=== PATIENT | male | born 2000 | race American Indian/Alaskan Native ===

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

== ENCOUNTER 2018-04-01 19:04 | Emergency (ER) | payer MEDICAID ==
[~2018-04-01] VITALS: Ht 167.6 cm; Wt 106.7 kg
[2018-04-01 19:15] VITALS: BP 159/101
[2018-04-02] MEDS ORDERED: LIDOCAINE 1% (LOCAL ANESTH.) PF 5ml SDV IJ ONE (02:00)
[2018-04-02] MEDS ORDERED: LIDOCAINE 2% (LOCAL ANESTH.) PF 5ml SDV ONE (02:00)
== END 2018-04-02 02:46 | disposition home or self-care (01) ==
LOC: ER 19:04
DX: S61.214A Laceration without foreign body of right ring finger without damage to nail, initial encounter (principal); W26.0XXA Contact with knife, initial encounter; Y93.89 Activity, other specified; Y92.89 Other specified places as the place of occurrence of the external cause; Y99.8 Other external cause status
CPT/HCPCS: 12001

== ENCOUNTER 2018-04-11 19:14 | Emergency (ER) | payer MEDICAID ==
[~2018-04-11] VITALS: Ht 167.6 cm; Wt 108.9 kg
[2018-04-11 19:30] VITALS: BP 142/90
== END 2018-04-11 21:22 | disposition home or self-care (01) ==
LOC: ER 19:14
DX: S61.210D Laceration without foreign body of right index finger without damage to nail, subsequent encounter (principal); X58.XXXD Exposure to other specified factors, subsequent encounter

== ENCOUNTER 2018-09-09 05:00 | Emergency (ER) | payer MEDICAID ==
[~2018-09-09] VITALS: Ht 175.3 cm; Wt 105.2 kg
[2018-09-09 06:14] VITALS: BP 149/88
== END 2018-09-09 06:40 | disposition home or self-care (01) ==
LOC: ER 05:04
DX: S63.592A Other specified sprain of left wrist, initial encounter (principal); S20.219A Contusion of unspecified front wall of thorax, initial encounter; W11.XXXA Fall on and from ladder, initial encounter; Y93.89 Activity, other specified; Y99.8 Other external cause status; Y92.89 Other specified places as the place of occurrence of the external cause
CPT/HCPCS: 29125; 71250; 73110

== ENCOUNTER 2019-02-21 19:13 | Emergency (ER) | payer MEDICAID ==
[~2019-02-21] VITALS: Ht 172.7 cm; Wt 105.7 kg
[2019-02-21 19:23] VITALS: BP 149/85
== END 2019-02-22 01:45 | disposition left against medical advice (07) ==
LOC: ER 19:17
DX: S39.94XA Unspecified injury of external genitals, initial encounter (principal); W17.2XXA Fall into hole, initial encounter; Y93.89 Activity, other specified; Y99.8 Other external cause status; Y92.89 Other specified places as the place of occurrence of the external cause; Z53.21 Procedure and treatment not carried out due to patient leaving prior to being seen by health care provider
CPT/HCPCS: 76870

== ENCOUNTER 2019-09-19 09:34 | Emergency (ER) | payer MEDICAID ==
[~2019-09-19] VITALS: Ht 175.3 cm; Wt 98.4 kg
[2019-09-19 11:04] VITALS: BP 137/95
== END 2019-09-19 11:14 | disposition home or self-care (01) ==
LOC: ER 09:34
DX: S51.012A Laceration without foreign body of left elbow, initial encounter (principal); W45.8XXA Other foreign body or object entering through skin, initial encounter; Y93.89 Activity, other specified; Y92.89 Other specified places as the place of occurrence of the external cause; Y99.8 Other external cause status
CPT/HCPCS: 73080

== ENCOUNTER 2022-06-29 22:28 | Emergency (ER) | payer MEDICAID ==
[~2022-06-29] VITALS: Ht 175.3 cm; Wt 90.2 kg
[2022-06-30] MEDS ORDERED: HYDROcodone-ACET 5/325MG TAB PO ONE (00:30)
[2022-06-30] MEDS ORDERED: diphenhdrAMINE HCL 25 MG CAP PO ONE (00:30)
[2022-06-30] MEDS ORDERED: METOCLOPRAMIDE HCL 10 MG TAB PO ONE (00:30)
[2022-06-30] MEDS ORDERED: KETOROLAC TROMETH 30 MG/ML 1ML VIAL IM ONE (00:30)
[2022-06-30] MEDS ORDERED: IOHEXOL 350 MG/ML 100ML IJ ONE (00:34)
[2022-06-30 01:07] LABS: Basophils # (auto) 0.1 10 ^3/uL (0-0.2); Basophils % (auto) 1.1 % (0.0-2.0); Eosinophils # (auto) 0.1 10 ^3/uL (0-0.8); Eosinophils % (auto) 1.3 % (0.0-7.0); Hematocrit 45.5 % (41.0-53.0); Hemoglobin 15.6 g/dL (13.5-17.5); Lymphocytes # (auto) 3.8 10 ^3/uL (0.4-5.4); Lymphocytes % (auto) 36.7 % (10.0-50.0); Mean Corpuscular Hemoglobin 29.9 pg (28.0-32.0); Mean Corpuscular Hgb Conc. 34.3 g/dL (32.0-36.0); Mean Corpuscular Volume 87.4 fL (80.0-100.0); Monocytes % (auto) 9.6 % (0.0-12.0); Neutrophils # (auto) 5.3 10 ^3/uL (1.6-8.6); Neutrophils % (auto) 51.3 % (37.0-80.0); Nucleated Red Blood Cells % 0.1 %; Red Blood Cells 5.21 10^6/uL (4.5-5.90); Red Cell Distribution Width 13.7 % (11.8-14.3); White Blood Cell 10.4 10^3/uL (4.4-10.8)
[2022-06-30 01:25] LABS: Albumin 4.4 g/dL (3.4-5.0); BUN/Creatinine Ratio 10.8; Calcium 9.1 mg/dL (8.5-10.1); Potassium 4.2 mmol/L (3.5-5.1)
[2022-06-30 01:28] LABS: Bilirubin, Total 0.4 mg/dL (0.2-1.0); Total Protein 7.6 g/dL (6.4-8.2)
[2022-06-30] MEDS ORDERED: METOCLOPRAMIDE HCL 5MG/ml INJ 2ml VIAL IV ONE (02:00)
[2022-06-30] MEDS ORDERED: SODIUM CHLORIDE 0.9% 1,000 ML IV ONE (02:00)
[2022-06-30] MEDS ORDERED: diphenhdrAMINE HCL 50 MG/1 ML VL IV ONE (02:00)
[2022-06-30 04:23] VITALS: BP 136/84
== END 2022-06-30 04:49 | disposition home or self-care (01) ==
LOC: ER 22:28
DX: R51.9 Headache, unspecified (principal); R11.2 Nausea with vomiting, unspecified; F12.10 Cannabis abuse, uncomplicated
CPT/HCPCS: 36415; 70496; 70498; 80053; 85025; 96361; 96374; 96375; 99285; J1200; J2765; J7030; Q9967

== ENCOUNTER 2023-01-13 14:35 | Emergency (ER) | payer MEDICAID ==
[~2023-01-13] VITALS: Ht 175.3 cm; Wt 88.9 kg
[2023-01-13 15:39] VITALS: BP 140/81
[2023-01-13 16:16] LABS: Basophils # (auto) 0.1 10 ^3/uL (0-0.2); Basophils % (auto) 0.3 % (0.0-2.0); Eosinophils # (auto) 0 10 ^3/uL (0-0.8); Eosinophils % (auto) 0.1 % (0.0-7.0); Hemoglobin 16.1 g/dL (13.5-17.5); Lymphocytes # (auto) 0.9 10 ^3/uL (0.4-5.4); Lymphocytes % (auto) 6.1 % (10.0-50.0); Mean Corpuscular Hemoglobin 30.2 pg (28.0-32.0); Mean Corpuscular Volume 86.2 fL (80.0-100.0); Monocytes # (auto) 1.5 10 ^3/uL (0-1.3); Monocytes % (auto) 9.4 % (0.0-12.0); Neutrophils % (auto) 84.1 % (37.0-80.0); Nucleated Red Blood Cells % 0.3 %; Red Blood Cells 5.33 10^6/uL (4.5-5.90); Red Cell Distribution Width 13.6 % (11.8-14.3); White Blood Cell 15.5 10^3/uL (4.4-10.8)
[2023-01-13 16:47] LABS: Albumin 4.3 g/dL (3.4-5.0); Calcium 9.1 mg/dL (8.5-10.1); Potassium 3.7 mmol/L (3.5-5.1)
[2023-01-13 16:50] LABS: Bilirubin, Total 0.7 mg/dL (0.2-1.0); Total Protein 7.8 g/dL (6.4-8.2)
[2023-01-13] MEDS ORDERED: ONDA-144 PO (18:20)
[2023-01-13] MEDS ORDERED: DICY10CA PO (18:20)
[2023-01-13] MEDS ORDERED: MAALOX PLUS or MAALOX 30 ML PO ONE (18:30)
== END 2023-01-13 22:34 | disposition home or self-care (01) ==
LOC: ER 14:35
DX: K29.70 Gastritis, unspecified, without bleeding (principal)
CPT/HCPCS: 36415; 74176; 80053; 81001; 83605; 83690; 85025

== ENCOUNTER 2023-05-08 11:45 | Emergency (ER) | payer MEDICAID ==
[~2023-05-08] VITALS: Ht 177.8 cm; Wt 80.0 kg
[~2023-05-08 11:45] MED LIST: DICY10CA PO; ONDA-144 PO
[2023-05-08 13:08] LABS: Basophils # (auto) 0 10 ^3/uL (0-0.2); Basophils % (auto) 0.2 % (0.0-2.0); Eosinophils # (auto) 0 10 ^3/uL (0-0.8); Hemoglobin 15.7 g/dL (13.5-17.5); Lymphocytes # (auto) 0.9 10 ^3/uL (0.4-5.4); Lymphocytes % (auto) 4.7 % (10.0-50.0); Mean Corpuscular Hemoglobin 29.8 pg (28.0-32.0); Mean Corpuscular Hgb Conc. 34.8 g/dL (32.0-36.0); Mean Corpuscular Volume 85.6 fL (80.0-100.0); Monocytes # (auto) 0.9 10 ^3/uL (0-1.3); Monocytes % (auto) 4.7 % (0.0-12.0); Neutrophils # (auto) 17.6 10 ^3/uL (1.6-8.6); Neutrophils % (auto) 90.4 % (37.0-80.0); Nucleated Red Blood Cells % 0.2 %; Red Blood Cells 5.25 10^6/uL (4.5-5.90); Red Cell Distribution Width 13.5 % (11.8-14.3); White Blood Cell 19.5 10^3/uL (4.4-10.8)
[2023-05-08 13:19] LABS: Albumin 4.5 g/dL (3.4-5.0); Calcium 9.1 mg/dL (8.5-10.1); Potassium 3.8 mmol/L (3.5-5.1)
[2023-05-08 13:23] LABS: BUN/Creatinine Ratio 14.3 (10.0-20.0); Bilirubin, Total 0.3 mg/dL (0.2-1.0); Total Protein 8.3 g/dL (6.4-8.2)
[2023-05-08] MEDS ORDERED: IOHEXOL 300 MG/ML 100ML BOTTLE IJ ONE (14:33)
[2023-05-08 14:43] LABS: Urine WBC None Seen /hpf (0 - 3)
[2023-05-08 15:20] LABS: Urine Amorphous Crystal FEW /hpf (None Seen); Urine Bacteria NONE SEEN /hpf (None Seen); Urine Blood Negative /uL (Negative); Urine Mucus FEW (None Seen); Urine Specific Gravity 1.018 (1.001-1.035)
[2023-05-08] MEDS ORDERED: MAALOX PLUS or MAALOX 30 ML PO ONE (15:30)
[2023-05-08] MEDS ORDERED: ONDANSETRON ODT 4 MG TAB PO ONE (15:30)
[2023-05-08] MEDS ORDERED: FAMOTIDINE 20 MG TAB PO ONE (15:30)
[2023-05-08] MEDS ORDERED: HYDROcodone-ACET 5/325MG TAB PO ONE (15:30)
[2023-05-08] MEDS ORDERED: TAMS-35 PO (15:32)
[2023-05-08] MEDS ORDERED: ZOFR4T PO (15:33)
[2023-05-08 16:44] VITALS: BP 150/74
== END 2023-05-08 16:47 | disposition home or self-care (01) ==
LOC: EDBD 11:45 → ER 11:45
DX: N20.0 Calculus of kidney (principal); F12.10 Cannabis abuse, uncomplicated
CPT/HCPCS: 36415; 74177; 80053; 81001; 83690; 85025; 99285; Q0162; Q9967

== ENCOUNTER 2023-11-23 16:46 | Emergency (ER) | payer MEDICAID ==
[~2023-11-23] VITALS: Ht 175.3 cm; Wt 90.9 kg
[~2023-11-23 16:46] MED LIST changes: +TAMS-35 PO; +ZOFR4T PO
[2023-11-23 20:30] VITALS: BP 137/78; PULSE 90; RESP 18; TEMP 98.6; O2SAT 99
[2023-11-23] MEDS ORDERED: cefTRIAXone SOD 1,000 MG VL IM ONE (20:45)
[2023-11-23] MEDS ORDERED: CLIN300C70 PO (20:56)
[2023-11-23] MEDS ORDERED: IBUP-1455 PO (20:56)
== END 2023-11-23 21:35 | disposition home or self-care (01) ==
LOC: ER 16:46
DX: T85.79XA Infection and inflammatory reaction due to other internal prosthetic devices, implants and grafts, initial encounter (principal); L03.115 Cellulitis of right lower limb; F15.90 Other stimulant use, unspecified, uncomplicated; Z79.899 Other long term (current) drug therapy; Y92.89 Other specified places as the place of occurrence of the external cause
CPT/HCPCS: 73610; 96372; 99283; J0696